=== PATIENT | male | born 1955 | race Caucasian/White ===

== ENCOUNTER → 2018-01-31 | Outpatient (CLI) | payer OTHER ==
[2018-01-31 10:02] LABS: BASOPHILS ABSOLUTE AUTO 0.05 K/mm3 (0.00-0.23); BASOPHILS PERCENT AUTO 1 % (0-2); EOSINOPHILS ABSOLUTE AUTO 0.07 K/mm3 (0.00-0.68); EOSINOPHILS PERCENT AUTO 1 % (0-6); Hematocrit 45.6 % (37.0-53.0); Hemoglobin 15.5 g/dL (13.5-17.5); IMMATURE GRAN ABSOLUTE AUTO 0.04 K/mm3 (0.00-0.10); IMMATURE GRAN PERCENT AUTO 0 % (0-1); LYMPHOCYTES ABSOLUTE AUTO 2.07 K/mm3 (0.84-5.20); LYMPHOCYTES PERCENT AUTO 19 % (21-46); MONOCYTES ABSOLUTE AUTO 0.84 K/mm3 (0.16-1.47); MONOCYTES PERCENT AUTO 8 % (4-13); Mean Corpuscular HGB 30.5 pg (26.0-34.0); Mean Corpuscular Volume 90 fL (80-100); Mean Platelet Volume 9.7 fL (9.1-12.4); NEUTROPHILS ABSOLUTE AUTO 7.97 K/mm3 (1.96-9.15); NEUTROPHILS PERCENT AUTO 72 % (41-73); Platelet Count 277 K/mm3 (150-400); RDW Standard Deviation 42.6 fL (35.1-46.3); Red Blood Cell Count 5.08 M/mm3 (4.30-5.90); White Blood Cell Count 11.04 K/mm3 (4.00-11.30)
[2018-01-31 10:11] LABS: Alanine Aminotransfer (ALT/SGP 18 U/L (12-78); Albumin, Blood 4.1 g/dL (3.4-5.0); Alk Phos 108 U/L (40-126); Anion Gap 9 mmol/L (6-16); Aspartate Aminotrans (AST/SGOT 19 U/L (12-37); Bilirubin, Total 1.2 mg/dL (0.1-1.0); Blood Urea Nitrogen 22 mg/dL (8-24); Bun/Creatinine Ratio 20.4 (12.0-20.0); CO2, Blood 30 mmol/L (21-32); Calcium, Blood 9.2 mg/dL (8.5-10.1); Chloride, Blood 99 mmol/L (98-108); Creatinine, Blood 1.08 mg/dL (0.60-1.20); Globulin, Blood 4.1 g/dL (2.2-4.0); Glomerular Filtration Rate >60 (60-); Glucose, Blood 110 mg/dL (70-99); Potassium, Blood 4.7 mmol/L (3.5-5.5); Sodium, Blood 138 mmol/L (136-145); Total Protein, Blood 8.2 g/dL (6.4-8.2)
== END | disposition home or self-care (01) ==
LOC: LAB EV 09:56 → LAB SHORT 09:56
PROVIDERS: Physician Assistant
DX: M79.675 Pain in left toe(s) (principal)
CPT/HCPCS: 80053; 84550; 85025

== ENCOUNTER 2018-04-05 09:03 | Day surgery (SDC) | payer OTHER ==
[~2018-04-05] VITALS: Ht 172.7 cm; Wt 63.0 kg
[~2018-04-05 09:03] MED LIST: ALBU90OI61 INH; Advair Hfa 230-12 GM INH; GABA300 PO
--- NOTE | 2018-04-05 11:52 | NUR ---
PT RESTING COMFORATBLY. VSS. NADN. CALL LIGHT WITHIN REACH. PT EATING LUNCH AT THIS TIME. R RADIAL TR BAND REMAINS STABLE.
--- NOTE | 2018-04-05 13:39 | NUR ---
ATTEMPTED TO LET AIR FROM TR BAND. PT BLED A SMALL AMOUNT. TR BAND REINFALTED. NO LONGER ACTIVE BLEEDING NOTED. VSS. NADN. CALL LIGHT WITHIN REACH.
[2018-04-05] MEDS ORDERED: ASPI81CH PO (13:53)
[2018-04-05] MEDS ORDERED: ATOR10 PO (13:54)
--- NOTE | 2018-04-05 14:18 | NUR ---
PT TR BAND FULLY DEFLATED. TOLERATES WELL. VSS. NADN. NO BLEEDING OR HEMATOMA NOTED. CALL LIGHT WITHIN REACH.
--- NOTE | 2018-04-05 14:56 | NUR ---
PT ATTEMPTED TO GET DRESSED. RIGHT WRIST STARTED OOZING FROM UNDER THE TR BAND 7 CC AIR PUT INTO TR BAND. NEW ARM BOARD PLACED ON PT. BRUISING NOTED AROUND INCISION SITE. PT REPORTS MINIMAL TENDERNESS TO PALPATION NEAR TR BAND NO SIGN OF HEMATOMA. WILL CONTINUE TO MONITOR.
--- NOTE | 2018-04-05 16:15 | NUR ---
TR BAND WAS FULLY DEFLATED AGAIN, AFTER REMOVING TR BAND SMALL HEMATOMA NOTED AT INCISION SITE. MANUAL PRESSURE HELD X [address] BAIG TO ROOM, PLAN OF CARE DISCUSSED. A PRESSURE DSG WAS APPLIED PER DR BAIG ORDERS. PT TOLERATES WELL. VSS. NADN. PT R ARM WITH SPLINT AND PLACED IN SLING. PT ESCORTED OUT BY S/O VIA W/C
--- NOTE | 2018-04-06 13:55 | NUR ---
CALLED TODAY AND SPOKE WITH PT REGARDING HIS R RADIAL SITE. PT REPORTS, INCREASED SWELLING NOTED THIS AM. PT HAS REMOVED PRESSURE BANDAGE AND SWELLING HAS DECREASED. NO BLEEDING NOTED. PT ADVISED TO ELEVATE HAND/ARM AND IF ANY WORSENING SWELLING OR BLEEDING TO CALL DR BAIG OFFICE OR COME INTO ER. PT VERBALIZES UNDERSTANDING. PT REPORTS, "I REALLY THINK IT'S GETTING BETTER."
== END 2018-04-05 16:15 | disposition home or self-care (01) ==
LOC: MHTC 09:03
PROC: B2111ZZ Fluoroscopy of Multiple Coronary Arteries using Low Osmolar Contrast (ICD-10-PCS; principal; 2018-04-05)
PROC: 4A023N7 Measurement of Cardiac Sampling and Pressure, Left Heart, Percutaneous Approach (ICD-10-PCS; principal; 2018-04-05)
PROC: 4A033BC Measurement of Arterial Pressure, Coronary, Percutaneous Approach (ICD-10-PCS; principal; 2018-04-05)
DX: I25.10 Atherosclerotic heart disease of native coronary artery without angina pectoris (principal); E78.5 Hyperlipidemia, unspecified; J44.9 Chronic obstructive pulmonary disease, unspecified; Z87.891 Personal history of nicotine dependence
CPT/HCPCS: 85347; 93454; 93571; 99152; 99153; C1769; C1887; C1894; J1644; J2250; J3010; J7030; Q9967

== ENCOUNTER 2023-01-07 08:08 | Day surgery (SDC) | payer OTHER ==
[~2023-01-07] VITALS: Ht 170.2 cm; Wt 63.7 kg
[~2023-01-07 08:08] MED LIST changes: +ASPI81CH PO; +ATOR10 PO
[2023-01-07] MEDS ORDERED: METO25ER PO (08:39)
[2023-01-07] MEDS ORDERED: BREZTRI AEROS10.7 GM (08:41)
--- NOTE | 2023-01-07 08:44 | NUR ---
01/07/23 0844 Mckenzie Velasquez TETRACAINE TO RIGHT EYE AT 0839 PLEDGET TO THE RIGHT EYE AT 0840 BY [email or web address]
[2023-01-07 09:48] VITALS: BP 110/78
--- NOTE | 2023-01-07 09:49 | NUR ---
01/07/23 0949 Tomas Mishra IV REMOVED INTACT. SITE WNL.
== END 2023-01-07 09:59 | disposition home or self-care (01) ==
LOC: ORSCSDS 08:08
PROVIDERS: Student in an Organized Health Care Education/Training Program
PROC: 08RJ3JZ Replacement of Right Lens with Synthetic Substitute, Percutaneous Approach (ICD-10-PCS; principal; 2023-01-07 09:30)
DX: H25.13 Age-related nuclear cataract, bilateral (principal); H21.81 Floppy iris syndrome; I10 Essential (primary) hypertension; J45.909 Unspecified asthma, uncomplicated; Z87.891 Personal history of nicotine dependence; J44.9 Chronic obstructive pulmonary disease, unspecified; Z99.81 Dependence on supplemental oxygen; Z79.899 Other long term (current) drug therapy
CPT/HCPCS: J2250; J3010; J7040; V2632

== ENCOUNTER 2023-01-21 07:56 | Day surgery (SDC) | payer OTHER ==
[~2023-01-21] VITALS: Ht 170.2 cm; Wt 63.9 kg
[~2023-01-21 07:56] MED LIST changes: +BREZTRI AEROS10.7 GM; +METO25ER PO
--- NOTE | 2023-01-21 08:59 | NUR ---
01/21/23 0859 Britni Sánchez TETRACAINE PLACED IN LEFT EYE AT 0848. PLEDGET PLACED IN LEFT EYE AT 0849. PATIENT TOLERATED WELL.
[2023-01-21 09:57] VITALS: BP 90/65
== END 2023-01-21 10:06 | disposition home or self-care (01) ==
LOC: ORSCSDS 07:56
PROVIDERS: Student in an Organized Health Care Education/Training Program
PROC: 08RK3JZ Replacement of Left Lens with Synthetic Substitute, Percutaneous Approach (ICD-10-PCS; principal; 2023-01-21 09:30)
DX: H25.12 Age-related nuclear cataract, left eye (principal); Z96.1 Presence of intraocular lens; H21.81 Floppy iris syndrome; J44.9 Chronic obstructive pulmonary disease, unspecified; I10 Essential (primary) hypertension; Z99.81 Dependence on supplemental oxygen; Z87.891 Personal history of nicotine dependence; Z79.82 Long term (current) use of aspirin; Z79.899 Other long term (current) drug therapy
CPT/HCPCS: J2250; J3010; J7040; V2632